=== PATIENT | female | born 1995 | race Caucasian/White ===

== ENCOUNTER 2022-03-11 09:56 | Inpatient (IN) | payer BC ==
[2022-03-10 16:04] LABS: Hemoglobin 11.3 g/dL (12.0-15.5); Platelet Count 237 10x3/uL (150-450)
[2022-03-10 16:36] LABS: SARS-CoV-2 NAA Rapid Test Not Detected (NotDetected)
[2022-03-10 16:50] LABS: Syphilis Antibody Nonreactive (Nonreactive); Syphilis Antibody Index 0.04 S/CO (<1.00 Non-Reactive)
[2022-03-10 16:52] LABS: HBSAg Index 0.16 S/CO (0-0.99); Hep B Surf Ag Non-Reactive S/CO (NonReactive)
[~2022-03-11 09:56] MED LIST: Bicitra 30 ML UDCUP PO PRN; CEFAZOLIN 2 GM in Sodium Chloride 0.9% 100 ML IVPB SCH; Famotidine/PF 20 mg/2ml Vial SLOW IVP PRN; Lactated Ringer's 1,000 ML IV SCH; Ondansetron PF 4 MG/2 ML Vial IVP PRN; Promethazine HCl 25 MG/ML VIAL IM PRN; hydrALAZINE 20 MG/ML VIAL SLOW IVP PRN
[2022-03-11] MEDS ORDERED: Moisturizing Cream (Eucerin) 113 GM JAR TOP PRN (10:46)
[2022-03-11] MEDS ORDERED: Promethazine HCl 25 MG SUPP PR PRN (10:46)
[2022-03-11] MEDS ORDERED: Ketorolac Tromethamine 30 MG/ML VIAL IVP PRN (10:46)
[2022-03-11] MEDS ORDERED: Naloxone HCl 0.4 mg/ml Vial IVP PRN ×2 (10:46)
[2022-03-11] MEDS ORDERED: Meperidine HCl/PF 25 MG/ML VIAL SLOW IVP PRN (10:46)
[2022-03-11] MEDS ORDERED: Ondansetron PF 4 MG/2 ML Vial IVP PRN ×2 (10:46→15:10)
[2022-03-11] MEDS ORDERED: Fentanyl 100 MCG/2 ML VIAL SLOW IVP PRN (10:46)
[2022-03-11] MEDS ORDERED: diphenhydrAMINE 50 MG/ML VIAL IVP PRN (10:46)
[2022-03-11] MEDS ORDERED: Ondansetron HCl/PF 4 MG/2 ML Vial IVP PRN (10:46)
[2022-03-11] MEDS ORDERED: Promethazine HCl 25 MG/ML VIAL IM PRN ×2 (10:46→15:10)
[2022-03-11] MEDS ORDERED: Naloxone HCl 0.4 mg/ml Vial IV PRN (10:46)
[2022-03-11] MEDS ORDERED: Oxytocin 10 UNITS/ML VIAL ONE (10:56)
[2022-03-11] MEDS ORDERED: PHENYLEPHRINE-NS 100 MCG/ML 10 ML SYRINGE ONE (10:56)
[2022-03-11] MEDS ORDERED: Morphine PF 10 MG/10 ML VIAL ONE (10:56)
[2022-03-11] MEDS ORDERED: Dexamethasone 4 mg/ml Vial ONE (10:56)
[2022-03-11] MEDS ORDERED: Ondansetron PF 4 MG/2 ML Vial ONE ×2 (10:56→12:13)
[2022-03-11] MEDS ORDERED: Ketorolac Tromethamine 30 MG/ML VIAL ONE (10:56)
[2022-03-11] MEDS ORDERED: Communication Order-Pharmacy FS SCH (11:00)
[2022-03-11] MEDS ORDERED: Ketorolac Tromethamine 30 MG/ML VIAL IVP SCH (11:00)
[2022-03-11 11:11] VITALS: BMI 41.8
[2022-03-11] MEDS ORDERED: CEFAZOLIN 2 GM VIAL ONE (11:28)
[2022-03-11] MEDS ORDERED: Bisacodyl 10 MG SUPP PR PRN (15:10)
[2022-03-11] MEDS ORDERED: diphenhydrAMINE 25 MG CAP PO PRN (15:10)
[2022-03-11] MEDS ORDERED: Acetaminophen 325 MG TAB PO PRN (15:10)
[2022-03-11] MEDS ORDERED: Lanolin Ointment 7 GM TUBE TOP PRN (15:10)
[2022-03-11] MEDS ORDERED: Boostrix 0.5 ML (Tdap) VIAL (>/=7 yrs of age) IM ONE (15:10)
[2022-03-11] MEDS ORDERED: hydrALAZINE 20 MG/ML VIAL SLOW IVP PRN (15:10)
[2022-03-11] MEDS: Docusate 100 MG CAP PO SCH (22:47)
[2022-03-11] MEDS: Ferrous Sulfate 325 MG TAB PO SCH (22:48)
[2022-03-11] MEDS ORDERED: HYDROcodone/Acetaminophen 5/325 mg Tablet PO PRN (23:30)
[2022-03-11] MEDS ORDERED: Zolpidem Tartrate 5 MG TAB PO PRN (23:30)
[2022-03-12 06:18] LABS: Hemoglobin 9.5 g/dL (12.0-15.5); Mean Corpuscular HGB CONC 34.2 g/dL (32.0-36.0); Mean Corpuscular Hemoglobin 28.6 pg (27.0-33.0); Mean Corpuscular Volume 83.7 fl (81.6-98.3); Mean Platelet Volume 10.6 fl (7.4-10.4); Platelet Count 203 10x3/uL (150-450); RBC Distribution Width 14.2 % (11.5-14.5); Red Blood Cell (RBC) Count 3.32 10x6/uL (3.90-5.03); White Blood Cell (WBC) Count 12.2 10x3/uL (3.5-10.5)
[2022-03-12] MEDS: Docusate 100 MG CAP PO SCH ×2 (08:37→21:44)
[2022-03-12] MEDS: Prenatal Vitamin 1 TAB PO SCH (08:37)
[2022-03-12] MEDS: Ferrous Sulfate 325 MG TAB PO SCH ×2 (08:37→21:44)
[2022-03-12] MEDS: Ibuprofen 800 MG TAB PO SCH ×2 (15:36→21:44)
[2022-03-12] MEDS: Simethicone Chewable 80 MG TAB PO PRN (21:45)
[2022-03-12] MEDS: HYDROcodone/Acetaminophen 5/325 mg Tablet PO PRN (21:45)
[2022-03-13] MEDS: HYDROcodone/Acetaminophen 5/325 mg Tablet PO PRN (06:14)
[2022-03-13] MEDS: Ibuprofen 800 MG TAB PO SCH (06:14)
[2022-03-13] MEDS: Simethicone Chewable 80 MG TAB PO PRN (06:17)
[2022-03-13 09:09] VITALS: BP 123/69; TEMP 98.1
[2022-03-13] MEDS: Ferrous Sulfate 325 MG TAB PO SCH (09:33)
[2022-03-13] MEDS: Docusate 100 MG CAP PO SCH (09:33)
[2022-03-13] MEDS: Prenatal Vitamin 1 TAB PO SCH (09:33)
== END 2022-03-13 12:00 | disposition home or self-care (01) | DRG 788 ==
LOC: CSHLD 09:56 → CSHPED 15:20
PROVIDERS: ADMIT Student in an Organized Health Care Education/Training Program; ATTEND Student in an Organized Health Care Education/Training Program
PROC: 10D00Z1 Extraction of Products of Conception, Low, Open Approach (ICD-10-PCS; principal; 2022-03-11)
DX: O32.1XX0 Maternal care for breech presentation, not applicable or unspecified (principal); Z3A.40 40 weeks gestation of pregnancy; Z37.0 Single live birth; Z20.822 Contact with and (suspected) exposure to COVID-19; Z79.82 Long term (current) use of aspirin; N73.6 Female pelvic peritoneal adhesions (postinfective); O99.892 Other specified diseases and conditions complicating childbirth
CPT/HCPCS: 36415; 51702; 85014; 85018; 85027; 85049; 86780; 86850; 86900; 86901; 87340; J1100; J1885; J2274; J2405; J2590; U0002